=== PATIENT | male | born 1980 | race Caucasian/White ===

== ENCOUNTER 2018-05-03 10:28 | Outpatient (CLI) | payer BC ==
--- NOTE | 2018-05-03 13:09 | MRI ---
MRI LUMBAR SPINE NONCONTRAST: HISTORY: Low back pain. Left leg radiculopathy. FINDINGS: Transition of vertebrae at the lumbosacral junction will be designated as the first sacral level, bas ed on radiographs from 2016. T12-L1/L1-L2/L2-L3: Mild osteophytosis. Central canal and neural foramen are patent. L3-L4: Desiccation of the disk. Posterior disk bulge and circumferential degenerative changes with m oderate stenosis of the central canal and mild stenosis of each neural foramen. L4-L5: Desiccation of the disk. Posterior disk bulge and circumferential degenerative changes with moderate stenosis of the central canal and each neural foramen, left greater than right. L5-S1: Mild posterior disk bulge. Thecal sac is patent. Degenerative changes with mild to moderate stenosis of each neural foramen. IMPRESSION: Multilevel degenerative changes throughout the lumbar spine. Stenoses of the L4-L5 neural foramen ar e greatest, left greater than right. Clinical correlation regarding the left L4 dermatome is require d. POS: JOHN
== END 2018-05-03 10:29 | disposition home or self-care (01) ==
LOC: TBSIIMAG 10:28
PROVIDERS: ATTEND Physician Assistant
DX: M51.16 Intervertebral disc disorders with radiculopathy, lumbar region (principal); M47.26 Other spondylosis with radiculopathy, lumbar region; M99.83 Other biomechanical lesions of lumbar region
CPT/HCPCS: 72148

== ENCOUNTER 2020-08-03 08:30 | Outpatient (CLI) | payer OTHER ==
--- NOTE | 2020-08-03 09:44 | MRI ---
MRI LUMBAR SPINE NONCONTRAST: HISTORY: Marked degenerative disc disease. COMPARISON: 05/03/2018. FINDINGS: Appropriate T1 marrow signal intensity of the lumbar vertebrae. Lumbar spine vertebral body heights a re maintained. No fracture. There are type I and type II Modic changes at L2-L3 and L3-L4. Type II Modic changes at L4-L5. There is partial sacralization of L5. Appropriate signal intensity in the visualized paraspinal muscles and solid organs Conus medullaris terminates at the upper aspect of L1. T12-L1:Adequate disc hydration. No posterior disc abnormality. No significant central canal stenosis or significant neural foraminal narrowing. L1-L2:Adequate disc hydration. Broad-based disc bulge, ligament flavum thickening and facet result in mild central canal stenosis. Patent bilateral neural foramina. L2-L3:Disc desiccation with mild loss of disc space height. Broad-based disc bulge with a right subar ticular disc herniation. There is contact upon the traversing right [id number] root. Mild central canal stenosis. Mild to moderate right and mild left neural foraminal narrowing. L3-L4:Disc desiccation with moderate loss of disc space height. Broad-based disc bulge, ligament flav um thickening and facet hypertrophy result in mild central canal stenosis. Narrowing of bilateral subarticular zones with partial obscuration of bilateral traversing L4 nerve roots, left greater than right. Moderate bilateral neural foraminal narrowing. L4-L5:Severe loss of disc space height. Broad-based disc bulge with mild deformity of the ventral the sharon sac. No significant central canal stenosis. Mild to moderate bilateral foraminal narrowing. 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 IMPRESSION: Multilevel degenerative changes of the lumbar spine as detailed above. Transcribed Date/Time: 08/03/2020 10:02 AM
== END 2020-08-03 08:31 | disposition home or self-care (01) ==
LOC: TBSIIMAG 08:30
PROVIDERS: ATTEND Nurse Practitioner Family
DX: M51.36 Other intervertebral disc degeneration, lumbar region (principal); M47.816 Spondylosis without myelopathy or radiculopathy, lumbar region
CPT/HCPCS: 72148

== ENCOUNTER 2023-01-28 15:23 | Outpatient (CLI) | payer OTHER | END 2023-01-28 15:24 | disposition home or self-care (01) | LOC: BICRAD 15:23 | PROVIDERS: ATTEND Internal Medicine | DX: M46.1 Sacroiliitis, not elsewhere classified (principal); M51.36 Other intervertebral disc degeneration, lumbar region; M51.37 Other intervertebral disc degeneration, lumbosacral region | CPT/HCPCS: 72202 ==